=== PATIENT | female | born 1965 | race Hispanic/Latino ===

== ENCOUNTER 2017-01-11 08:21 | Emergency (ER) | payer SELFPAY ==
[~2017-01-11] VITALS: Ht 170.2 cm; Wt 81.3 kg
[~2017-01-11 08:21] MED LIST: ALBUTEROL SULF8.5 GM IH; MOTRIN600 MG PO
[2017-01-11 09:04] LABS: EOSINOPHIL (%) 0.5 % (0-5); EOSINOPHIL COUNT 0.1 K/uL (0-0.3); IMMATURE GRANULOCYTE (%) 0.3 % (0.0-0.7); INSTRUMENT ABS NEUTROPHIL CT 7.4 K/uL; LYMPHOCYTE COUNT 1.9 K/uL (1.0-2.8); MCH 30.2 PG (29.0-34.0); MCHC 33.2 G/DL (30.0-36.0); MCV 91.1 FL (83-99); MEAN PLAT.VOLUME 10.9 uM^3 (9.5-12.4); MONOCYTE COUNT 0.5 K/uL (0-0.8); NEUTROPHIL (%) 74.4 % (45-76); NEUTROPHIL COUNT 7.4 K/uL (1.8-6.4); PLATELET COUNT 218 K/uL (156-360); RBC DIS.WIDTH-CV 12.3 % (11.8-14.6); RBC DIS.WIDTH-SD 41.1 % (39-53); RED BLOOD COUNT 4.83 M/uL (3.80-5.20); WHITE BLOOD COUNT 9.9 K/uL (4.1-10.2)
[2017-01-11 09:16] LABS: CHLORIDE 105 mEq/L (99-109); SODIUM 142 mEq/L (136-147)
[2017-01-11 09:17] LABS: D-DIMER ELISA 0.55 mg/L FEU (< 0.57)
[2017-01-11 09:18] LABS: GLUCOSE 149 mg/dL (70-99)
[2017-01-11 09:19] LABS: ANION GAP 17 MEQ/L (2-14)
[2017-01-11 09:22] LABS: GFR ESTIMATE (CALCULATED) > 59 mL/min/
[2017-01-11 09:23] LABS: UREA NITROGEN (BUN) 19 mg/dL (9-23)
[2017-01-11 09:26] LABS: TROP-I INTERPRETATION NEGATIVE; TROPONIN-I < 0.01 ng/mL (0.0-0.30)
[2017-01-11 11:41] LABS: TROP-I INTERPRETATION NEGATIVE; TROPONIN-I < 0.01 ng/mL (0.0-0.30)
[2017-01-11 12:25] VITALS: BP 158/86
== END 2017-01-11 12:25 | disposition home or self-care (01) ==
LOC: EME → EDBD 08:21 → EME 08:21
PROVIDERS: Emergency Medicine
DX: R07.89 Other chest pain (principal); F41.1 Generalized anxiety disorder; F17.200 Nicotine dependence, unspecified, uncomplicated; Z88.0 Allergy status to penicillin
CPT/HCPCS: 71010; 71275; 80048; 84484; 85025; 85379; 93005; 99281; 99285; J1885; J2060; J2405

== ENCOUNTER 2017-06-22 01:31 | Emergency (ER) | payer OTHER ==
[~2017-06-22] VITALS: Ht 170.2 cm; Wt 81.2 kg
[2017-06-22] MEDS ORDERED: VENTOLIN HFA18 GM IH (02:54)
[2017-06-22 03:00] VITALS: BP 131/85
== END 2017-06-22 03:03 | disposition home or self-care (01) ==
LOC: EME 01:31
DX: S61.215A Laceration without foreign body of left ring finger without damage to nail, initial encounter (principal); W26.9XXA Contact with unspecified sharp object(s), initial encounter; Y92.512 Supermarket, store or market as the place of occurrence of the external cause; Y99.0 Civilian activity done for income or pay; J45.909 Unspecified asthma, uncomplicated; Z23 Encounter for immunization
CPT/HCPCS: 99281; 99284; S0020

== ENCOUNTER 2017-07-07 08:12 | Emergency (ER) | payer OTHER ==
[~2017-07-07] VITALS: Ht 170.2 cm; Wt 83.6 kg
[~2017-07-07 08:12] MED LIST changes: +VENTOLIN HFA18 GM IH
[2017-07-07 09:07] VITALS: BP 127/78
== END 2017-07-07 09:09 | disposition home or self-care (01) ==
LOC: EME 08:12
DX: S61.215D Laceration without foreign body of left ring finger without damage to nail, subsequent encounter (principal); Z48.02 Encounter for removal of sutures; Y99.0 Civilian activity done for income or pay
CPT/HCPCS: 99281; 99284